=== PATIENT | female | born 1955 | race Caucasian/White ===

== ENCOUNTER 2018-08-27 15:51 | Outpatient (CLI) | payer MEDICAID, SELFPAY ==
[2018-08-27 16:27] LABS: Abs Immature Grans 0.01 k/cumm (0.0-0.09); Absolute Basophil Count 0.02 k/cumm (0.0-0.2); Absolute Eosinophil Count 0.19 k/cumm (0.0-0.7); Absolute Lymphocyte Count 2.68 k/cumm (1.2-3.4); Absolute Monocyte Count 0.59 k/cumm (0.11-0.7); Absolute Neutrophil Count 3.25 k/cumm (1.2-6.7); Basophils % 0.3; Eosinophils % 2.8; HCT 42.8 % (36.0-46.0); Immature Grans % 0.1; Lymphocytes % 39.8; Mean Corp. HGB Concentration 32.7 g/dL (32.0-36.0); Mean Corpuscular Hemoglobin 29.4 pg (27.0-33.0); Mean Corpuscular Volume 89.7 fL (80-95); Mean Platelet Volume 10.1 fL (8.0-11.0); Monocytes % 8.8; Neutrophils % 48.2; Platelet Count 160 x1000/uL (130-400); RBC 4.77 m/cumm (4.00-5.20); RBC Distribution Width 13.9 % (11.7-14.6); White Blood Cell Count 6.74 k/cumm (4.4-10.8)
[2018-08-27 17:39] LABS: ALT 24 U/L (12-78); AST 20 U/L (15-37); Alkaline Phosphatase 74 U/L (46-116); Anion Gap 6.9 mmol/L (3-11); BUN 21 mg/dL (7-18); Bilirubin, Total 0.9 mg/dL (0.2-1.0); CO2 30.1 mmol/L (21.0-32.0); CREATININE 0.99 mg/dL (0.55-1.02); Calcium 9.6 mg/dL (8.5-10.1); Chloride 104 mmol/L (98-107); Estimated GFR 56.84 (mL/min/1.73m2); Glucose 82 mg/dL (70-100); Sodium 141 mmol/L (136-145); TSH 2.54 uIU/mL (0.358-3.74); Total Protein 6.7 g/dL (6.4-8.2)
[2018-08-30 11:34] LABS: SS-A Antibody 2.4 Units (<20); SS-B (La) Ab, IgG 4.3 Units (<20)
[2018-09-03 14:00] LABS: ANA Interpretation Positive (NEGAT); ANA Titer Pattern SEE COMMENTS
== END 2018-08-27 16:11 ==
PROVIDERS: PCP Family Medicine; Visit Provider Physician Assistant
DX: R43.2 Parageusia (principal); R47.01 Aphasia
CPT/HCPCS: 36415; 80053; 84443; 85025; 86038; 86235